=== PATIENT | male | born 1955 ===

== ENCOUNTER 2017-02-02 02:36 | Inpatient (IN) | payer MEDICARE ==
[2017-02-02 03:09] LABS: BASO # 0.1 K/uL (0.0-0.2); BASO % 1.5 % (0.0-2.0); EOS # 0.6 K/uL (0.0-0.7); EOS % 13.5 % (0.0-4.0); HEMATOCRIT 40.4 % (35.0-51.0); LYMPH # 0.9 K/uL (1.0-4.3); LYMPH % 20.6 % (20.0-40.0); MEAN CELL VOLUME 103.6 fL (80.0-94.0); MEAN CORPUSCULAR HEMOGLOBIN 34.4 pg (27.0-31.0); MEAN CORPUSCULAR HGB CONC 33.2 g/dL (33.0-37.0); MEAN PLATELET VOLUME 9.5 fL (7.2-11.7); MONO # 0.4 K/uL (0.0-0.8); MONO % 9.8 % (0.0-10.0); RED CELL DISTRIBUTION WIDTH 15.2 % (11.5-14.5); WHITE BLOOD COUNT 4.2 K/uL (4.8-10.8)
[2017-02-02 03:12] LABS: RBC URINE 1 /hpf (0-3); URINE BILIRUBIN NEGATIVE (NEGATIVE); URINE BLOOD NEGATIVE (NEGATIVE); URINE COLOR Yellow (YELLOW); URINE GLUCOSE (UA) NORMAL (Normal); URINE KETONE NEGATIVE (NEGATIVE); URINE LEUKOCYTE ESTERASE NEG Leu/uL (Negative); URINE PROTEIN NEGATIVE (NEGATIVE); URINE UROBILINOGEN NORMAL mg/dL (0.2-1.0); WBC URINE 1 /hpf (0-5)
--- NOTE | 2017-02-02 03:40 | C.PDOC ---
History Of Present Illness 61 year old male who presents to the ER as a prescreen for detox from heroin an ETOH. Patient reports he does 4 bags of heroin intranasally and drinks 1 pint of ETOH daily. Denies suicidal ideation or physical complaints at this time. Chief Complaint (Nursing): Substance Abuse History Per: Patient History/Exam Limitations: no limitations Onset/Duration Of Symptoms: Days Current Symptoms Are (Timing): Still Present Suicide/Self Injury Attempted (Context): None Modifying Factor(s): Alcohol, Narcotics Associated Symptoms: denies: Depression, Suicidal Thoughts, Suicidal Plan Involuntary Hold By: None Recent travel outside of the [place]: No Past Medical History Reviewed: Historical Data, Nursing Documentation, Vital Signs Vital Signs: Last Vital Signs Temp 98.3 F 02/02/17 02:56 Pulse 60 02/02/17 02:56 Resp 18 02/02/17 02:56 BP 163/80 H 02/02/17 02:56 Pulse Ox 100 02/02/17 04:12 - Medical History PMH: No Chronic Diseases Surgical History: Cholecystectomy Family History: States: Unknown Family Hx - Social History Hx Alcohol Use: Yes Hx Substance Use: Yes - Immunization History Hx Tetanus Toxoid Vaccination: No Hx Influenza Vaccination: No Hx Pneumococcal Vaccination: No Review Of Systems Constitutional: Negative for: Fever, Chills Gastrointestinal: Negative for: Nausea, Vomiting, Diarrhea Psych: Negative for: Suicidal ideation Physical Exam - Physical Exam Appears: Non-toxic, No Acute Distress Skin: Normal Color, Warm, Dry Head: Atraumatic, Normacephalic Oral Mucosa: Moist Chest: Symmetrical, No Tenderness Cardiovascular: Rhythm Regular, No Murmur Respiratory: Normal Breath Sounds, No Rales, No Rhonchi, No Wheezing Gastrointestinal/Abdominal: Soft, No Tenderness Neurological/Psych: Oriented x3, Normal Speech, Normal Cognition ED Course And Treatment - Laboratory Results Result Diagrams: 02/02/17 03:06 02/02/17 03:06 O2 Sat by Pulse Oximetry: 100 (Room air) Pulse Ox Interpretation: Normal Progress Note: Blood work and urinalysis ordered. Crisis notified. Patient is medically cleared to be evaluated and admitted to Detox. Patient is accepted by to detox. Disposition - Disposition Disposition: HOSPITALIZED Disposition Time: 04:34 Condition: STABLE Forms: [place] (Gabonese) - Clinical Impression Clinical Impression: Alcohol dependence, Opiate dependence - Scribe Statement The provider has reviewed the documentation as recorded by the Scribe Abilio Bhakta All medical record entries made by the Scribe were at my direction and personally dictated by me. I have reviewed the chart and agree that the record accurately reflects my personal performance of the history, physical exam, medical decision making, and the department course for this patient. I have also personally directed, reviewed, and agree with the discharge instructions and disposition. Decision To Admit - Pt Status Changed To: Hospital Disposition Of: Inpatient - Admit Certification Admit to Inpatient:: After my assessment, the patient will require hospitalization for at least two midnights. This is because of the severity of symptoms shown, intensity of services needed, and/or the medical risk in this patient being treated as an outpatient. - InPatient: Physician Admission Certification: I certify that this patient requires 2 or more midnights of care for the following reason:: needs more than 2 days of detox - . Bed Request Type: Detox Admitting Physician: Leah Bean Patient Diagnosis: Alcohol dependence, Opiate dependence
[2017-02-02 03:42] LABS: CHLORIDE 108 mmol/L (98-107); SODIUM 136 mmol/L (132-148)
[2017-02-02 03:43] LABS: POTASSIUM 4.5 mmol/L (3.6-5.2)
[2017-02-02 03:45] LABS: ALB/GLOB RATIO 0.7 (1.0-2.1); ALKALINE PHOSPHATASE 260 U/L (38-126); ALT/SGPT 78 U/L (21-72); AST/SGOT 98 U/L (17-59); BLOOD UREA NITROGEN 9 mg/dL (9-20); CALCIUM 8.5 mg/dl (8.6-10.4); CARBON DIOXIDE 21 mmol/L (22-30); GFR AFRICAN-AMERICAN > 60; GLUCOSE,RANDOM 90 mg/dL (75-110); TOTAL PROTEIN 7.1 g/dL (6.3-8.3)
[2017-02-02 03:46] LABS: ALCOHOL SERUM < 10 mg/dl (0-10)
[2017-02-02] MEDS ORDERED: Buprenorphine Hydrochloride 2 mg SL ONE ×2 (12:15→13:21)
--- NOTE | 2017-02-02 12:59 | PCM.BM ---
<Rachel Sosa - Last Filed: 02/02/17 12:56> Treatment Plan Problems - Problems identified on initial assessmt Opiate Dependence Date Initiated: 02/02/17 Time Initiated: 07:00 Assessment reference: NA Status: Active ETOH Dependence Date Initiated: 02/02/17 Time Initiated: 07:00 Assessment reference: NA Status: Active Treatment assets and liabiliti Patient Assests: ADL independent Patient Liabilities: substance abuse - Milieu Protocol Maintain good personal hygiene: daily Encourage regular showers, daily Remind patient to perform daily oral care, daily Assist patient to perform ADL's Maintain personal safety: every shift Educate patient to report safety concerns to staff, every shift Monitor environment for contraband/sharps Medication safety: Monitor for expected outcome, potential side effects: every shift, Assess barriers to learning: every shift, Assess readiness for medication education: every shift <Terrance Schroeder M - Last Filed: 02/02/17 14:23> Treatment Plan Problems - Problems identified on initial assessmt Opiate Dependence Date Initiated: 02/02/17 Time Initiated: 07:00 Assessment reference: NA Status: Active ETOH Dependence Date Initiated: 02/02/17 Time Initiated: 07:00 Assessment reference: NA Status: Active Problem 2 Date Initiated: 02/02/17 Time Initiated: 07:00 - Diagnosis (1) Alcohol use disorder, severe, dependence Status: Acute Interventions: 02/02/17 14:23 Librium (2) Opiate use Status: Acute Interventions: 02/02/17 14:23 Subutex taper <Suyapa Russo - Last Filed: 02/03/17 08:41> Family Contact Family involvement: Family/SO is involved Family contact: Patient agrees to contact - Goals for Treatment Patient goals for treatment: Transition from detox to either rehab or IOP. Discharge/Continuing Care - Education Needs Education Needs: Patient Medication, Patient Diagnosis/Disease Process, Patient Coping Skills, Patient Anger Management skills, Patient Placement options, Patient Community resources - Discharge Discharge Criteria: No longer exhibiting s/s of withdrawal, Reduction of target symptoms Discharge to:: Substance Abuse Rehab - Treatment Team Participation Patient/Family/SO Statement: 02/03/17 08:39 "I either wanna go to rehab or IOP" Discussed with Family/SO: No Was Patient/Family/SO present at Treatment Team Meeting: Yes
--- NOTE | 2017-02-02 14:19 | PCM.PSYCH ---
Initial Psychiatric Evaluation - Initial Psychiatric Evaluation Type of Admission: Voluntary Legal Status: Capacity Chief Complaint (in patient's own words): I need help for my substance use History of Present Illness and Precipitating Events: Patient is a 61 years old, , retired, male, lives with , has 4 grown up children don't live with him, was admitted due to withdrawing from heroin and alcohol. Reported he started using heroin at the age of 19 years. Stopped using for many years and he relapsed again 4 years ago. Since then he is using 4 bags daily, sniffing. Last use reported yesterday. History of 2 rehabs but no detox. Alcohol: Started using at the age of 13 years, Increased gradually up to 1 pint of alcohol every day. Last drink was yesterday one glass of beer. Before that he drank half pint on Wednesday. Also has history of cocaine use in the remote past. Smokes one pack of cigarettes daily and is requesting for nicotine patch., Current Medications: Active Medications Generic Name Dose Route Start Last Admin Trade Name [place] PRN Reason Stop Dose Admin Chlordiazepoxide 25 mg 02/02/17 13:29 Librium PO Q4H PRN Alcohol Withdrawal Clonidine HCl 0.1 mg 02/02/17 13:26 Catapres PO Q8 PRN COWS Score More or Equal to 5 Dicyclomine HCl 20 mg 02/02/17 13:27 Bentyl PO Q6 PRN Other Folic Acid 1 mg 02/02/17 13:30 Folic Acid PO DAILY IVONNE Gabapentin 300 mg 02/02/17 18:00 Neurontin PO BID IVONNE Loperamide HCl 2 mg 02/02/17 13:26 Imodium PO Q8 PRN Diarrhea Multivitamins 1 tab 02/02/17 13:30 Hexavitamin PO DAILY IVONNE Nicotine 1 patch 02/02/17 13:30 02/02/17 13:31 Nicoderm Cq TD 1 patch DAILY IVONNE Administration Ondansetron HCl 4 mg 02/02/17 13:26 Zofran Tab PO Q8 PRN Nausea/Vomiting Thiamine HCl 100 mg 02/02/17 13:30 Vitamin B1 Tab PO DAILY IVONNE Trazodone HCl 50 mg 02/02/17 22:00 Desyrel PO HS IVONNE Past Psychiatric History - Past Psychiatric History Previous Treatment History: None History of Abuse: I'm reported History of ETOH/Drug Use: See HPI History of Family Illness: None reported Pertinent Medical Hx (Current Medical&Sleep Prob, Allergies): Allergies Allergy/AdvReac Type Severity Reaction Status Date / Time No Known Allergies Allergy Unverified 02/02/17 02:59 No Known Home Med 02/02/17 Hepatitis C Liver cancer? Review of Systems - Psychiatric Psychiatric: Other Mental Status Examination - Personal Presentation Personal Presentation: Looks stated age - Affect Affect: Other (Appropriate) - Motor Activity Motor Activity: Calm - Reliability in Providing Information Reliability in Providing Information: Fair - Speech Speech: Organized - Mood Mood: Anxious - Formal Thought Process Formal Thought Process: No Impairment - Hallucinations/Delusions Hallucinations: Other Delusions: Other (None reported) - Obsessions/Compulsions Obsessions: None Compulsions: None - Cognitive Functions Orientation: Person, Place, Situation, Time Sensorium: Alert Attention/Concentration: Attentive Abstract Thinking: [place] Estimate of Intelligence: Average Judgement: Intact, as evidence by: Insight regarding need for hospitalization Memory: Recent intact, as evidence by: 3/3 object recall, Remote intact, as evidenced by: Ability to recall historical events - Risk Risk: Withdrawal, Diminished functioning - Strength & Assets Inventory Strength & Assets Inventory: Family support, Cooperative - Limitations Limitations: Other DSM 5 DX - DSM 5 DSM 5 Diagnosis: Opiate use disorder Alcohol use disorder severe Alcohol withdrawal Opiate withdrawal - Recommended/Plan of Treatment Treatment Recommendations and Plan of Treatment: Patient education Supportive therapy We'll start Subutex taper for opiate withdrawal symptoms Start Librium for alcohol withdrawal symptoms Nicotine patch Multivitamins Folic acid Timing Projected ELOS: 4-5 days - Smoking Cessation Smoking Cessation Initiated: Yes
[2017-02-02] MEDS: Multiple Vitamins Tab PO SCH (14:53)
[2017-02-03] MEDS: Multiple Vitamins Tab PO SCH (09:45)
[2017-02-03] MEDS: Buprenorphine Hydrochloride 2 mg SL SCH (09:45)
--- NOTE | 2017-02-03 17:23 | PCM.PYCHPN ---
Psychiatric Progress Note - Psychiatric Progress Note Patient seen today, length of contact: 15 minute Patient Chief Complaint: I'm feeling better Problems Identified/Issues Discussed: Patient seen. Chart reviewed. Case discussed with this. Issues related to illness and treatment were discussed with the patient. Reported compliant with treatment with no adverse affects. Tolerating treatment very well. Feeling better with the treatment. At the time of evaluation, patient was awake alert oriented 3, had no delusions, no auditory visual hallucinations, suicidal ideations or homicidal ideations. Medical Problems: Hepatitis C Liver cancer Diagnostic Results: Reviewed DSM 5 Symptoms Update: Improving with treatment Medication Change: No Medical Record Reviewed: Yes Mental Status Examination - Cognitive Function Orientation: Person, Place, Situation, Time Memory: Intact Attention: WNL Concentration: WNL Association: WNL Fund of Knowledge: [facility] Decription of patient's judgement and insights: Fair - Mood Mood: Anxious (Less than before) - Affect Affect: Other (Appropriate) - Speech Speech: Appropriate - Formal Thought Process Formal Thought Process: No Impairment Psychotic Thoughts and Behaviors: None - Suicidal Ideation Suicidal Ideation: No - Homicidal Ideation Homicidal Ideation: No Goal/Treatment Plan - Goal/Treatment Plan Need for Continued Stay: Remain at risks for inpatient hospitalization, Discharge may exacerbated symptoms, Severe functional impairment Progress Toward Problem(s) and Goals/Treatment Plan: Patient education Supportive therapy Continue treatment as before Estimated Date of D/C: 02/06/17 - Smoking Cessation Smoking Cessation Initiated: Yes
[2017-02-04] MEDS: Multiple Vitamins Tab PO SCH (09:24)
[2017-02-04] MEDS: Buprenorphine Hydrochloride 2 mg SL SCH (09:24)
[2017-02-04 17:26] VITALS: RESP 18
--- NOTE | 2017-02-04 17:51 | PCM.PYCHPN ---
Psychiatric Progress Note - Psychiatric Progress Note Patient seen today, length of contact: 15 minute Patient Chief Complaint: I'm feeling better Problems Identified/Issues Discussed: Patient seen. Chart reviewed. Case discussed with this. Issues related to illness and treatment were discussed with the patient. Reported compliant with treatment with no adverse affects. Tolerating treatment very well. Feeling better with the treatment. At the time of evaluation, patient was awake alert oriented 3, had no delusions, no auditory visual hallucinations, suicidal ideations or homicidal ideations. Medical Problems: Hepatitis C Liver cancer Diagnostic Results: Reviewed DSM 5 Symptoms Update: Improving with treatment Medication Change: No Medical Record Reviewed: Yes Mental Status Examination - Cognitive Function Orientation: Person, Place, Situation, Time Memory: Intact Attention: WNL Concentration: WNL Association: WNL Fund of Knowledge: [facility] Decription of patient's judgement and insights: Fair - Mood Mood: Anxious (Much Less than before) - Affect Affect: Other (Appropriate) - Speech Speech: Appropriate - Formal Thought Process Formal Thought Process: No Impairment Psychotic Thoughts and Behaviors: None - Suicidal Ideation Suicidal Ideation: No - Homicidal Ideation Homicidal Ideation: No Goal/Treatment Plan - Goal/Treatment Plan Need for Continued Stay: Remain at risks for inpatient hospitalization, Discharge may exacerbated symptoms, Severe functional impairment Progress Toward Problem(s) and Goals/Treatment Plan: Patient education Supportive therapy Continue treatment as before Estimated Date of D/C: 02/06/17 - Smoking Cessation Smoking Cessation Initiated: Yes
[2017-02-05] MEDS: Multiple Vitamins Tab PO SCH (10:38)
[2017-02-05] MEDS: Buprenorphine Hydrochloride 2 mg SL SCH (10:42)
--- NOTE | 2017-02-05 15:27 | PCM.PYCHPN ---
Psychiatric Progress Note - Psychiatric Progress Note Patient seen today, length of contact: 15 minute Patient Chief Complaint: I'm feeling much better Problems Identified/Issues Discussed: Patient seen. Chart reviewed. Case discussed with this. Issues related to illness and treatment were discussed with the patient. Reported compliant with treatment with no adverse affects. Tolerating treatment very well. Feeling better with the treatment. At the time of evaluation, patient was awake alert oriented 3, had no delusions, no auditory visual hallucinations, suicidal ideations or homicidal ideations. Medical Problems: Hepatitis C Liver cancer Diagnostic Results: Reviewed DSM 5 Symptoms Update: Improving with treatment Medication Change: No Medical Record Reviewed: Yes Mental Status Examination - Cognitive Function Orientation: Person, Place, Situation, Time Memory: Intact Attention: WNL Concentration: WNL Association: WNL Fund of Knowledge: [facility] Decription of patient's judgement and insights: Fair - Mood Mood: Anxious (Much Less than before) - Affect Affect: Other (Appropriate) - Speech Speech: Appropriate - Formal Thought Process Formal Thought Process: No Impairment Psychotic Thoughts and Behaviors: None - Suicidal Ideation Suicidal Ideation: No - Homicidal Ideation Homicidal Ideation: No Goal/Treatment Plan - Goal/Treatment Plan Need for Continued Stay: Remain at risks for inpatient hospitalization, Discharge may exacerbated symptoms, Severe functional impairment Progress Toward Problem(s) and Goals/Treatment Plan: Patient education Supportive therapy Continue treatment as before Estimated Date of D/C: 02/06/17 - Smoking Cessation Smoking Cessation Initiated: Yes
[2017-02-06 06:00] VITALS: O2SAT 100
[2017-02-06] MEDS: Multiple Vitamins Tab PO SCH (09:52)
--- NOTE | 2017-02-06 10:06 | PCM.PYCHDC ---
Mental Status Examination - Mental Status Examination Orientation: Person, Place, Situation, Time Memory: Intact Mood: Neutral Affect: Constricted Speech: Soft Attention: WNL Concentration: WNL Association: WNL Fund of Knowledge: WNL Formal Thought Process: No Impairment Description of patient's judgement and insight: good, fair Psychotic Thoughts and Behaviors: denies any AVH Suicidal Ideation: No Current Homicidal Ideation?: No Discharge Summary - Discharge Note Reason for Hospitalization: Patient is a 61 years old, , retired, male, lives with , has 4 grown up children don't live with him, was admitted due to withdrawing from heroin and alcohol. Reported he started using heroin at the age of 19 years. Stopped using for many years and he relapsed again 4 years ago. Since then he is using 4 bags daily, sniffing. Last use reported yesterday. History of 2 rehabs but no detox. Alcohol: Started using at the age of 13 years, Increased gradually up to 1 pint of alcohol every day. Last drink was yesterday one glass of beer. Before that he drank half pint on Wednesday. Also has history of cocaine use in the remote past. Smokes one pack of cigarettes daily and is requesting for nicotine patch., Consultations:: List each consultation separately and include: 1. Reason for request. 2. Findings. 3. Follow-up Summary of Hospital Course include:: 1. Description of specific treatment plan utilized for patients during their course of treatmen. 2. Summarize the time- course for resolution of acute symptoms and/or regressed behaviors. 3. Describe issues identified and worked on during hospitalization. 4. Describe medication utilized. 5. Describe medical problems identified and treated. 6. Reassessment of suicide risk Summary of Hospital Course: During the course of his stay, patient (pt) started progressively improving and he no longer remained anxious and irritable. He tolerated the withdrawal protocol very well. He didnt have any shakes, sweating, tremors or cramps or any other withdrawal symptoms upon discharge. He started attending groups and meetings and started socializing. He denied any feelings of hopelessness, helplessness, and worthlessness, denied any problem with the sleep or appetite, denied suicidal ideation or homicidal ideation. Pt denied any auditory or visual hallucinations. Patient remained calm and cooperative and remained compliant with the medications. Patient tolerated the detox medications very well and denied any side effects. - Final Diagnosis (DSM 5) Condition upon Discharge: STABLE DSM 5: Opiate use disorder Alcohol use disorder severe Alcohol withdrawal Opiate withdrawal Disposition: HOME/ ROUTINE Follow-up Treatment Plan: Education: Pt was educated and counseled about the risks and benefits of taking and not taking medications. Pt was educated and counseled about the risks of drinking and abusing drugs. Pt was educated and counseled to go to the ER or call 911 if pt develop suicidal ideation or homicidal ideation, worsening of symptoms or severe side effects of the meds. Prescriptions/Medication Reconciliation: Gabapentin [Neurontin] 300 mg PO BID 14 Days traZODone [Desyrel] 50 mg PO HS #14 tab - Smoking Cessation Smoking Cessation Medication prescribed: No - Antipsychotic Medications Pt discharged on 2 or more routine antipsychotic medications: No
[2017-02-06 12:00] VITALS: BP 139/81; PULSE 54; TEMP 98.1
== END 2017-02-06 11:15 | disposition home or self-care (01) | DRG 895 ==
LOC: C.ER 02:36 → EDSEX 02:36 → C.7D 04:35
PROVIDERS: ADMIT Psychiatry & Neurology Psychiatry; ATTEND Psychiatry & Neurology Psychiatry
PROC: HZ2ZZZZ Detoxification Services for Substance Abuse Treatment (ICD-10-PCS; principal; 2017-02-02)
PROC: HZ59ZZZ Individual Psychotherapy for Substance Abuse Treatment, Supportive (ICD-10-PCS; 2017-02-02)
DX: F10.230 Alcohol dependence with withdrawal, uncomplicated (principal); C22.9 Malignant neoplasm of liver, not specified as primary or secondary; F11.23 Opioid dependence with withdrawal; Y90.0 Blood alcohol level of less than 20 mg/100 ml; F17.210 Nicotine dependence, cigarettes, uncomplicated; B19.20 Unspecified viral hepatitis C without hepatic coma